=== PATIENT | male | born 1950 | race Caucasian/White ===

== ENCOUNTER 2023-12-15 05:43 | Day surgery (SDC) | payer OTHER, SELFPAY ==
--- OUTSIDE RECORDS SUMMARY | 2023-12-15 05:48 | XMS RPT_ITS | CCD ---
Author Name Unknown Address [address] [place] [address] [address] [place] [address] Organization [facility] Care Team Providers Care Certified Juvenile Probation Officer Name Role Phone PINA BAEZ Admitting Unavailable CAMILA BAEZRY Eric Attending Unavailable PINA BAEZ Primary Care Unavailable GARCIA SHAH MD Consulting Unavailable GARCIA SHAH MD Referring Unavailable PROVIDER, UNKNOWN Consulting Unavailable PROVIDER, UNKNOWN Consulting Unavailable PROVIDER, UNKNOWN Consulting Unavailable Results Test Name Value Interpretation Reference Range Facil ity Encounters Encounter Date Encounter Type Care Provider Facility Start: 04-27-2021 End: 04-27-2021 Emergency department patient visit PINA BAEZ [facility] Payers Date Payer Category Payer Unknown [id number] Medicare [id number] Unknown [id number] Discharge summary note 04-30-2021 Note Date & Type Note Facility 04-30-2021 Note Department of Trauma / Critical Care Discharge Summary Name: Iris Johnson Date: 05/03/2021 7:22 PM : 1950 Age/Sex: 70 y.o. male Admit Date: 04/28/2021 Discharge Date: 04/30/2021 Attending: Ammy Barnhart MD Discharge Diagnosis: 1. Foot fracture, left, open, initial encounter 2. Acute traumatic pain 3. Trauma Patient Active Problem List Diagnosis ? Trauma ? Foot dislocation, left, initial encounter ? Closed displaced fracture of anterior process of left calcaneus ? Acute traumatic pain ? Foot fracture, left, open, initial encounter Body mass index is 28.98 kg/m?. BMI Classification: Overweight (BMI 25.0-29.9) Reason for Hospitalization: The patient was admitted for LLE fx. Hospital Course (Care, treatment and services provided): Please see H&P and prior notes for more detailed summary of previous investigations and clinical assessment prior to this admission. Brief HPI 70 y.o. male status post LLE fracture. The incident happened around late afternoon on 04/27/21 [place]. When the event happened the patient was bundling hay. He states he was standing next to his large tractor when he wanted to press a lever up top, but accidentally hit the clutch and the tractor rolled over his left leg. He did fall backwards, landing first on his buttocks and then laying flat. He does not think he hit his head Hospital course: Mr. Johnson was transferred from [place] after a tractor rolled over the leg. He was found to have open left dislocation navicular/cuneiform joint, comminuted calcaneus fracture and small comminuted fracture of the lateral navicular. He was taken to OR with ortho. POD 1 his block was still in place and he stayed overnight for pain control. POD 2 he had adequate pain control, tolerating PO. PT cleared him for home and he was discharged to home on 04/30. ? Consultations: IP CONSULT TO GERIATRICS ORTHO PCP: No primary care provider on file. Recommended Follow-ups: 22 X-ray Wednesday 11:00 AM Address: [address] [facility], [address], [place] [address]. Take the elevator to the 3rd floor, [address], to the ortho office to register and complete your xray. [facility] [address] [facility] [address] ? Postop with Himanshu Camacho MD Wednesday 11:10 AM [facility] [address] [facility] [address] Office Visit with CONCETTA QURESHI CNP Wednesday 12:00 PM Please arrive 15 minutes prior to appointment, bring photo ID and insurance card. Need directions getting to your appointment? Use the WAY FINDER for [id number] directions to destinations across the [facility]. [email or web address] [address] [facility] [address] Treatments and Procedures with outcomes: Labs: Data Review Data CBC with Differential: Lab Results Component Value Date WBC 11.7 04/30/2021 RBC 3.50 04/30/2021 HGB 11.0 04/30/2021 HCT 32.3 04/30/2021 PLT 129 04/30/2021 CMP: Lab Results Component Value Date NA 135 04/29/2021 K 4.2 04/29/2021 CL 109 04/29/2021 CO2 24 04/29/2021 BUN 26 04/29/2021 CREATININE 0.79 04/29/2021 GLUCOSE 168 04/29/2021 CALCIUM 8.2 04/29/2021 BMP: Hepatic Function Panel: Ionized Calcium: No results found for: IONCA Magnesium: Lab Results Component Value Date MG 2.1 04/29/2021 Phosphorus: Lab Results Component Value Date PHOS 2.6 04/29/2021 PT/INR: Lab Results Component Value Date PROTIME 11.8 04/28/2021 INR 1.1 04/28/2021 PTT: Lab Results Component Value Date APTT 23.9 04/28/2021 [APTT Last 3 Troponin: No results found for: TROPONINI Urine Culture: No components found for: CURINE Blood Culture: No components found for: CBLOOD, CFUNGUSBL Blood Culture from Central Line: No components found for: CBLOODLN Stool Culture: No components found for: CSTOOL Sputum Culture: No components found for: CSPUTUM Sputum Culture for AFB: No components found for: CAFBSM Wound Culture: NA Procedures: 1. I&D left foot 2. CRPP medial column Significant Imaging Results: XR Chest 1 VW Result Date: 04/28/2021 Patient Name: IRIS JOHNSON Diagnostic Radiology ACCESSION EXAM DATE/TIME PROCEDURE ORDERING PROVIDER [id number] 04/28/2021 05:25 EDT CR Chest 1 View Frontal MD FOSTER ALEX CPT code 79457 Reason For Exam (CR Chest 1 View Frontal) preop Report PORTABLE CHEST CLINICAL INDICATION: Preoperative evaluation TECHNIQUE: Portable AP COMPARISON: None FINDINGS: Exam quality: EKG leads obscure small portions of the chest. The heart demonstrates normal size. Calcification of the thoracic aorta is noted. There is a circumscribed region of increased density with sharp border overlying the (more content not included)... [facility] Summary Purpose Family History No Family History Records FoundNo Family History Records FoundNo Family History Records Found Advance Directives No Advanced Directives Records FoundNo Advanced Directives Records FoundNo Advanced Directives Records Found Additional Source Comments (unrecognized sect ion and content) No Status Records FoundNo Status Records FoundNo Status Records Found INFORMATION SOURCE (unrecogn ized section and content) DATE CREATED AUTHOR AUTHOR'S ORGANIZ ATION 05/02/2021 [facility] ([place]) DATE CREATED AUTHOR AUTHOR'S ORGANIZ ATION 05/23/2021 [facility] FOR RECORDS PERTAINING TO PATIENTS WHO ARE OR HAVE BEEN ENROLLED IN A CHEMICAL DEPENDENCY/SUBSTANCEABUSE PROGRAM, SOME INFORMATION MAY BE OMITTED. This clinical summary was aggregated from multiple sources. Caution should be exercised in using it in the provision of clinical care. This summary normalizes information from multiple sources, and as a consequence, information in this document may materially change the coding, format and clinical context of patient data. In addition, data may be omitted in some cases. CLINICAL DECISIONS SHOULD BE BASED ON THE PRIMARY CLINICAL RECORDS. [employer] provides no warranty or guarantee of the accuracy or completeness of information in this document.
[2023-12-15] MEDS: Lactated Ringers 1,000 ML 15 ML IV (06:17)
[2023-12-15 06:18] VITALS: BP 136/84; PULSE 66; RESP 18; TEMP 36.6; O2SAT 97; BMI 28.7
[2023-12-15 06:41] LABS: Bedside Glucose 118 mg/dL (74-106)
--- NOTE | 2023-12-15 07:09 | PCM.HP.BLA ---
History and Physical Date of Admission: 12/15/23 Date of Service: 11/18/23 MR#: [id number] Acct: [id number] Name: IRIS JOHNSON Rep #: [id number] : 1950 Provider: Dr. Rosa Villalobos MD Age/Sex: 73/M Location: [facility] Status: Signed Intake Vital Signs 11/18/2313:10 Height 5 ft 6 in Weight: 177 lb BMI 28.5 BP 118/67 Blood Pressure Location Rt brachial Position Sitting Respiration 17 Pulse 67 Pulse Source Monitor Pulse Oximetry (%) 95 Oxygen Delivery Method room air Intake Visit Reasons: COLONSCOPY SCREENING Chief Complaint: colonoscopy screening Is patient in pain?: No Allergies No Known Allergies Allergy (Unverified 11/18/23 13:12) Medications alendronate 70 mg tablet 70 mg PO QWEEK 11/18/23 [History Confirmed 11/18/23] aspirin 81 mg tablet,delayed release 81 mg PO DAILY 11/18/23 [History Confirmed 11/18/23] cholecalciferol (vitamin D3) 50 mcg (2,000 unit) capsule 50 mcg PO DAILY 11/18/23 [History Confirmed 11/18/23] finasteride 5 mg tablet 5 mg PO DAILY 11/18/23 [History Confirmed 11/18/23] metformin 500 mg tablet 500 mg PO DAILY 11/18/23 [History Confirmed 11/18/23] rosuvastatin 5 mg tablet 5 mg PO DAILY 11/18/23 [History Confirmed 11/18/23] PFSH Medical History (Updated 11/18/23 @ 13:10 by Yamel Calderón) Broken foot Broken wrist Diabetes Social History (Updated 11/18/23 @ 13:10 by Yamel Calderón) Smoking Status: Never smoker alcohol intake: never substance use type: does not use HPI HPI HPI: 73-year-old male presents for a screening colonoscopy. Patient had a colonoscopy 10 years ago which was negative per patient. [facility]. Patient has bowel movements daily denies any blood denies any chronic abdominal pain/nausea/vomiting/reflux. Patient denies any family history of colon cancer. ROS General General: No weight change, appetite, fatigue, colon cancer, breast cancer or weakness HEENT HEENT: No difficulty swallowing, eye injury, eye surgery, swollen glands or hoarseness Endo Endocrine: Yes diabetes mellitus; No thyroid disease, thyroid cancer, Hair loss, heat intolerance or cold intolerance Skin Skin: No rash or changing moles Musc Musculoskeletal: Yes back problems; No arthritis, rheumatoid arthritis, gout or joint pain Cardio Cardiovascular: No murmur, pacemaker, heart disease, atrial fibrillation, high blood pressure, heart attack, heart stent, palpitations, shortness of breat with exertion or chest pain Psych Psychiatric: No depression, anxiety or hearing voices Resp Respiratory: Yes shortness of breath, No sleep apnea, No cough, No COPD, No asthma, No emphysema and No wheezing Gastro Gastrointestinal: No abdominal pain, No nausea or vomiting, No diarrhea, No constipation, No blood in stool, No acid reflux, No hemorrhoids, No ulcers, No gallbladder problem and No black,tarry stools Aubrey Hematologic: No blood thinners, No blood disorders, No bleeding, No anemia and No blood clots Neuro Neurologic: No system reviewed and no additional complaints, except as documented, No as per HPI, No abnormal gait, No abnormal hearing, No abnormal movements, No abnormal speech, No behavioral changes, No burning sensations, No confusion, No convulsions, No disequilibrium, No dizziness, No localized weakness, No frequent falls, No headache(s), No lack of coordination, No loss of vision, No memory loss, No numbness, No other visual disturbances, No radicular pain, No restless legs, No sensory deficit, No syncope, No tingling, No tremor(s), No weakness and No other Exam Const General: cooperative, healthy appearing, comfortable and no acute distress HENCT Head: normocephalic and atraumatic Neck Neck: supple Resp Effort & Inspection: normal respiratory effort Cardio Rate: regular rate GI Inspection: non-distended Palpation: soft and nontender Skin General: no rashes or lesions noted Neuro General: CN's II-XI intact bilaterally Extrem General: normal to inspection Psych Mental Status: mental status grossly normal Attitude: cooperative Assessment and Plan Assessment and Plan (1) Screening for malignant neoplasm of colon: Status: Acute Plan I have discussed the above with the patient. I have offered the patient colonoscopy for evaluation. I have explained the risks/benefits of the procedure and described the procedure. I have discussed the risks with the patient, including but not limited to: infection, bleeding, perforation of the GI tract requiring emergency surgery, inability to complete the procedure, injury to any internal organs, complications of anesthesia, etc. - the patient understands and agrees to proceed. I have answered all the patient's questions to the patient's satisfaction and the patient has no further questions. The patient has been given instructions for the colon cleansing preparation. 1 day of clears, movi prep?patient has from the [place] Rosa Villalobos M.D. Pager: [phone] [facility] [address] [place] [address] Office: [phone] Coding Level of Care Code Off vis,new,level 2 Diagnoses Screening for malignant neoplasm of colon Z12.11 11/19/23 1138 <Electronically signed by Rosa Villalobos MD> Date Rosa Villalobos MD
--- NOTE | 2023-12-15 07:30 | COLBX_PTH ---
PATHOLOGY RESULTS PATIENT: IRIS JOHNSON LOC: EN U#:[id number] AGE/SX: 73/M ROOM: RE12/15/[address]: Dr. Rosa Villalobos MD : 1950 BED: DIS: 12/15/2023 SPEC #: [id number] RECD: 12/15/23 12:31 STATUS: ROLANDO JAYLA #: [id number] ALAYNA: 12/15/23 07:[address]: Rosa Villalobos DEPT: SURGICAL PATHOLOGY RECD BY: Unique Larry ENTERED: 12/15/23 12:32 SP TYPE: COLON BX OTHR DR: [facility] Tissues: Ascending colon Transverse colon Descending colon Procedures: Surgery Specimen Level IV HEADER OPERATION: Colonoscopy with polypectomy and biopsy PRE-OP DIAGNOSIS: Screening TISSUE SUBMITTED: A - Ascending colon polyp biopsy and polypectomy x3, B - Transverse colon polyp, C - Descending colon polyp and biopsy x3 MICROSCOPIC DIAGNOSIS A. Ascending colon polyp, biopsy and polypectomy x3: Fragments of tubular adenoma. Fragments of fecal material. B. Transverse colon polyp, biopsy: Fragments of tubular adenoma. Fragments of fecal material. C. Descending colon polyp x3, biopsy: Fragments of tubular adenoma. See comment. SJ:nicole 12/16/2023 COMMENT C. All three fragments show tubular adenomatous changes. MICROSCOPIC DESCRIPTION Slides are reviewed. GROSS DESCRIPTION A - Received in fixative is one container labeled with the patient's name and designated Ascending colon polyp biopsy. The specimen consists of multiple irregular fragments of light lundy soft tissue that in aggregate measure 2.5 x 0.8 x 0.3 cm. The specimen is totally submitted in one cassette. B - Received in fixative is one container labeled with the patient's name and designated transverse colon polyp. The specimen consists of multiple irregular fragments of light lundy soft tissue that in aggregate measure 0.6 x 0.2 x 0.1 cm. The specimen is totally submitted in one cassette. C - Received in fixative is one container labeled with the patient's name and designated descending colon polyp x3. The specimen consists of three irregular fragments of light lundy soft tissue that in aggregate measure 0.8 x 0.3 x 0.1 cm. The specimen is totally submitted in one cassette. / DANIA:nicole 12/15/2023 TC:1 CPT: 51143 x3
[2023-12-15 08:05] VITALS: BP 136/84; BP 97/54; PULSE 58; RESP 16; TEMP 36.8; O2SAT 96
--- NOTE | 2023-12-15 08:08 | OP.CCLET_ITS ---
12/15/2023 [facility] Re : [facility] This procedure was performed on Friday, December 15, 2023. My impressions and recommendations are as follows: Impressions : - Hemorrhoids found on perianal exam. - Non-bleeding internal hemorrhoids. - Five less than 5 mm polyps in the descending colon, in the transverse colon and in the ascending colon, removed with a hot snare. Resected and retrieved. - Two less than 5 mm polyps in the descending colon and in the ascending colon, removed with a cold biopsy forceps. Resected and retrieved. - The examination was otherwise normal. Recommendations : - Discharge patient to home. - Resume previous diet. - Continue present medications. - Await pathology results. - Repeat colonoscopy in 5 years for surveillance of multiple polyps. My findings are described in the full procedure note, which is enclosed. If I can be of further assistance, please feel free to contact me at Doctor phone number(s): , Work: . Sincerely, MD Rosa Bains MD 12/15/2023 8:07:04 AM This report has been signed electronically.
--- NOTE | 2023-12-15 08:08 | OP.COLON_ITS ---
Patient Name: Stevo Swift Procedure Date: 12/15/2023 7:26 AM Date of : 1950 Age: 73 Procedure: Colonoscopy Indications: Screening for colorectal malignant neoplasm Providers: Rosa Villalobos MD Referring MD: Rosa Villalobos MD Medicines: Monitored Anesthesia Care Patient Profile: This is a 73 year old male. Last Colonoscopy: 10 years ago. Complications: No immediate complications. Procedure: Pre-Anesthesia Assessment: - Prior to the procedure, a History and Physical was performed, and patient medications and allergies were reviewed. The patient's tolerance of previous anesthesia was also reviewed. The risks and benefits of the procedure and the sedation options and risks were discussed with the patient. All questions were answered, and informed consent was obtained. Prior Anticoagulants: The patient has taken no anticoagulant or antiplatelet agents. ASA Grade Assessment: Per anesthesia. After reviewing the risks and benefits, the patient was deemed in satisfactory condition to undergo the procedure. After I obtained informed consent, the scope was passed under direct vision. Throughout the procedure, the patient's blood pressure, pulse, and oxygen saturations were monitored continuously. The Colonoscope was introduced through the anus and advanced to the cecum, identified by the appendiceal orifice, ileocecal valve and palpation. The colonoscopy was performed without difficulty. The patient tolerated the procedure well. The quality of the bowel preparation was good. Scope In: 7:33:36 AM Scope Withdrawal Time 0 hours 21 minutes 29 seconds Scope Out: 8:00:37 AM Total Procedure Duration Time 0 hours 27 minutes 1 second Findings: Hemorrhoids were found on perianal exam. Non-bleeding internal hemorrhoids were found. The hemorrhoids were Grade I (internal hemorrhoids that do not prolapse). Five semi-pedunculated polyps were found in the descending colon, transverse colon and ascending colon. The polyps were less than 5 mm in size. These polyps were removed with a hot snare. Resection and retrieval were complete. Two sessile polyps were found in the descending colon and ascending colon. The polyps were less than 5 mm in size. These polyps were removed with a cold biopsy forceps. Resection and retrieval were complete. The exam was otherwise without abnormality. Impression: - Hemorrhoids found on perianal exam. - Non-bleeding internal hemorrhoids. - Five less than 5 mm polyps in the descending colon, in the transverse colon and in the ascending colon, removed with a hot snare. Resected and retrieved. - Two less than 5 mm polyps in the descending colon and in the ascending colon, removed with a cold biopsy forceps. Resected and retrieved. - The examination was otherwise normal. Recommendation: - Discharge patient to home. - Resume previous diet. - Continue present medications. - Await pathology results. - Repeat colonoscopy in 5 years for surveillance of multiple polyps. Procedure Code(s): --- Professional --- 90618, PT, Colonoscopy, flexible; with removal of tumor(s), polyp(s), or other lesion(s) by snare technique 22406, 59, Colonoscopy, flexible; with biopsy, single or multiple Diagnosis Code(s): --- Professional --- Z12.11, Encounter for screening for malignant neoplasm of colon K64.0, First degree hemorrhoids D12.3, Benign neoplasm of transverse colon (hepatic flexure or splenic flexure) D12.4, Benign neoplasm of descending colon D12.2, Benign neoplasm of ascending colon CPT copyright 2021 [employer]. All rights reserved. The codes documented in this report are preliminary and upon polish compounder review may be revised to meet current compliance requirements. MD Rosa Bains MD 12/15/2023 8:07:04 AM This report has been signed electronically. Number of Addenda: 0 Note Initiated On: 12/15/2023 7:26 AM
[2023-12-15 08:10] VITALS: BP 136/84
[2023-12-15 08:15] VITALS: BP 110/67; BP 136/84; PULSE 59; RESP 16; O2SAT 98
[2023-12-15 08:20] VITALS: BP 118/74; BP 136/84; PULSE 55; RESP 16; TEMP 36.7; O2SAT 100
[2023-12-15 08:34] VITALS: BP 136/84
== END 2023-12-15 08:46 | disposition home or self-care (01) ==
LOC: EN 05:49 → AC 05:49
PROVIDERS: Visit Provider Surgery
PROC: 0DJD8ZZ Inspection of Lower Intestinal Tract, Via Natural or Artificial Opening Endoscopic (ICD-10-PCS; CPT 45378; principal; 2023-12-15 07:25)
DX: Z12.11 Encounter for screening for malignant neoplasm of colon (principal); E11.9 Type 2 diabetes mellitus without complications; K63.5 Polyp of colon; K64.0 First degree hemorrhoids; Z79.84 Long term (current) use of oral hypoglycemic drugs
CPT/HCPCS: 45385; 45380; 82962; 88305; J7120; J2405

== ENCOUNTER 2024-03-16 17:30 | Outpatient (RCR) | payer SELFPAY | END 2024-03-21 23:59 | LOC: NS 17:30 | DX: Z71.3 Dietary counseling and surveillance (principal) ==